=== PATIENT | male | born 1990 ===

== ENCOUNTER 2018-06-11 17:13 | Emergency (ER) | payer OTHER ==
[2018-06-11 17:24] VITALS: BP 125/79; PULSE 73; RESP 18; TEMP 98.9; O2SAT 97
[2018-06-11] MEDS ORDERED: Lidocaine 5% Patch TD STA (17:25)
[2018-06-11] MEDS ORDERED: Lidocaine 5% Patch TD ONE (17:35)
--- NOTE | 2018-06-11 18:15 | C.PDOC ---
History Of Present Illness 27 y/o male presents to the ER complaining of left sided lower back pain which began [employer]. Patient states that he was shoveling meat into a convex grinder when he strained his back. Patient reports that the pain is sharp and constant and rates the pain 10/10. Denies having fever, chills, dysuria, and hematuria. Time Seen by Provider: 06/11/18 17:15 Chief Complaint (Nursing): Back Pain History Per: Patient History/Exam Limitations: no limitations Onset/Duration Of Symptoms: Hrs Current Symptoms Are (Timing): Still Present Severity: Moderate Past Medical History Reviewed: Historical Data, Nursing Documentation, Vital Signs Vital Signs: Last Vital Signs Temp 98.9 F 06/11/18 17:22 Pulse 73 06/11/18 17:22 Resp 18 06/11/18 17:22 BP 125/79 06/11/18 17:22 Pulse Ox 97 06/11/18 18:43 - Medical History PMH: No Chronic Diseases Surgical History: No Surg Hx Family History: States: No Known Family Hx - Social History Hx Alcohol Use: Yes Hx Substance Use: No Review Of Systems Except As Marked, All Systems Reviewed And Found Negative. Constitutional: Negative for: Fever, Chills Genitourinary: Negative for: Dysuria, Hematuria Musculoskeletal: Positive for: Back Pain Physical Exam - Physical Exam Appears: Non-toxic, No Acute Distress Skin: Normal Color, Warm, Dry Head: Atraumatic, Normacephalic Eye(s): bilateral: Normal Inspection Nose: Normal Oral Mucosa: Moist Neck: Supple Chest: Symmetrical Back: Paraspinal Tenderness (left paraspinal lumbar region wuth palpable muscle spasm) Extremity: Normal ROM Neurological/Psych: Oriented x3, Normal Speech ED Course And Treatment O2 Sat by Pulse Oximetry: 97 (RA) Pulse Ox Interpretation: Normal Medical Decision Making Medical Decision Making: Plan: --Tramadol PO --Motrin PO --Valium PO --Lidoderm Patch Updates: On re-evaluation, patient feels better. Patient has been discharged and instructed to follow up in medical clinic. Disposition Counseled Patient/Family Regarding: Diagnosis, Need For Followup, Rx Given - Disposition Referrals: [facility] at [facility] [Outside] Disposition: HOME/ ROUTINE Disposition Time: 18:13 Condition: STABLE Prescriptions: diaZEpam [Valium] 5 mg PO TID #12 tab Ibuprofen [Motrin] 600 mg PO TID #15 tab Lidocaine 5% [Lidoderm] 1 ea TD DAILY #3 patch Instructions: Low Back Pain (DC) Forms: Gen Discharge Inst Turkish, [facility] (Turkish), Work Excuse - POA Present On Arrival: None - Clinical Impression Clinical Impression: Low back strain - Scribe Statement The provider has reviewed the documentation as recorded by the Yari Akins Provider Attestation: All medical record entries made by the Erickaibchuy were at my direction and personally dictated by me. I have reviewed the chart and agree that the record accurately reflects my personal performance of the history, physical exam, medical decision making, and the department course for this patient. I have also personally directed, reviewed, and agree with the discharge instructions and disposition.
== END 2018-06-11 18:21 | disposition home or self-care (01) ==
LOC: C.ER 17:13
DX: S39.012A Strain of muscle, fascia and tendon of lower back, initial encounter (principal); X58.XXXA Exposure to other specified factors, initial encounter

== ENCOUNTER 2018-06-19 08:32 | Emergency (ER) | payer SELFPAY | END 2018-06-19 08:55 | disposition left against medical advice (07) | LOC: C.ER 08:32 | DX: Z02.89 Encounter for other administrative examinations (principal); M54.9 Dorsalgia, unspecified ==

== ENCOUNTER 2018-07-24 18:06 | Emergency (ER) | payer OTHER ==
[2018-07-24] MEDS ORDERED: Sodium Chloride 0.9% 1,000 ML IV ONE (18:53)
[2018-07-24] MEDS ORDERED: Sodium Chloride 0.9% 1,000 ML ONE (19:00)
[2018-07-24 19:10] LABS: BASO % 0.5 % (0.0-2.0); EOS # 0.4 K/uL (0.0-0.7); EOS % 8.5 % (0.0-4.0); HEMOGLOBIN 15.8 g/dL (12.0-18.0); LYMPH # 1.7 K/uL (1.0-4.3); LYMPH % 33.7 % (20.0-40.0); MEAN CELL VOLUME 81.5 fL (80.0-94.0); MEAN CORPUSCULAR HEMOGLOBIN 27.2 pg (27.0-31.0); MEAN CORPUSCULAR HGB CONC 33.4 g/dL (33.0-37.0); MEAN PLATELET VOLUME 9.2 fL (7.2-11.7); MONO # 0.6 K/uL (0.0-0.8); MONO % 12.2 % (0.0-10.0); NEUT # 2.3 K/uL (1.8-7.0); NEUT % 45.1 % (50.0-75.0); NRBC % 0.2 % (0.0-2.0); RBC 5.81 Mil/uL (4.40-5.90); RED CELL DISTRIBUTION WIDTH 13.4 % (11.5-14.5); WHITE BLOOD COUNT 5.1 K/uL (4.8-10.8)
[2018-07-24 19:24] LABS: ALB/GLOB RATIO 1.5 (1.0-2.1); ALBUMIN 4.6 g/dL (3.5-5.0); ALT/SGPT 28 U/L (21-72); AST/SGOT 24 U/L (17-59); BLOOD UREA NITROGEN 12 mg/dL (9-20); GFR NON-AFRICAN AMERICAN > 60; LIPASE 95 U/L (23-300)
--- NOTE | 2018-07-24 19:29 | C.PDOC ---
History Of Present Illness 28 year old male presents to the ED for evaluation of worsening epigastric abdominal pain associated with severe nausea for 2 weeks. Patient reports sustaining an injury at work, he was prescribed unknown medications, and has since started experiencing abdominal pain. Denies vomiting, fever, diarrhea, dark stool, and any other associated symptoms. Time Seen by Provider: 07/24/18 18:35 Chief Complaint (Nursing): Abdominal Pain History Per: Patient History/Exam Limitations: no limitations Onset/Duration Of Symptoms: Days Current Symptoms Are (Timing): Still Present Past Medical History Reviewed: Historical Data, Nursing Documentation, Vital Signs Vital Signs: Last Vital Signs Temp 98.4 F 07/24/18 18:27 Pulse 68 07/24/18 18:27 Resp 20 07/24/18 18:27 BP 126/74 07/24/18 18:27 Pulse Ox 99 07/24/18 18:27 Family History: States: Unknown Family Hx - Social History Hx Alcohol Use: Yes Hx Substance Use: No Review Of Systems Constitutional: Negative for: Fever, Chills Gastrointestinal: Positive for: Nausea, Abdominal Pain (epigastric.). Negative for: Vomiting, Diarrhea Physical Exam - Physical Exam Appears: Non-toxic Skin: Normal Color, Warm, Dry Head: Atraumatic, Normacephalic Eye(s): bilateral: Normal Inspection Oral Mucosa: Moist Neck: Normal ROM, Supple Cardiovascular: Rhythm Regular, No Murmur Respiratory: Normal Breath Sounds, No Rales, No Rhonchi, No Wheezing Gastrointestinal/Abdominal: Normal Exam, Soft, Tenderness (to the epigastric region. ), No Distention, Guarding, No Rebound Extremity: Bilateral: Atraumatic, Normal Color And Temperature, Normal ROM Neurological/Psych: Oriented x3, Normal Speech, Normal Motor Gait: Steady ED Course And Treatment - Laboratory Results Result Diagrams: 07/24/18 19:03 07/24/18 19:03 Lab Interpretation: Normal O2 Sat by Pulse Oximetry: 99 (RA) Pulse Ox Interpretation: Normal - CT Scan/US US ABD Complete Other Rad Studies (CT/US): Read By Radiologist CT/US Interpretation: CLINICAL HISTORY: Abdominal pain. TECHNIQUE: Realtime sonographic images were obtained in multiple projections. COMMENTS: The liver is of uniform echo texture without evidence of mass or defect measuring 16.66 cm. There is no intra or extrahepatic biliary ductal dilatation. The common bile duct measures 3.3 mm. The gallbladder shows gallbladder polyps measuring 0.48 x 0.29 x 0.36 cm and 0.53 x 0.31 x 0.61 cm. There are additional echogenic foci in the dependent portion compatible with small stones. The gallbladder wall is not thickened measuring 0.14 cm and there is no pericholecystic fluid. There is no abdominal ascites. The visualized portions of abdominal aorta present no abnormalities. There is limited visualization of the pancreas. The spleen is of uniform echo texture and does not appear enlarged measuring 7.97 cm. The right kidney measures 10.99 x 5.3 x 5.78 cm and the left kidney measures 11.85 x 6.03 x 5.58 cm. Both kidneys are free of hydronephrosis. IMPRESSION: 1. Gallbladder polyps. 2. Gallstones. Reevaluation Time: 21:52 Reassessment Condition: Improved Medical Decision Making Medical Decision Making: Plan: --Urinalysis --Blood sent. --Pepcid --Zofran --US Abdomen Complete. Disposition Counseled Patient/Family Regarding: Studies Performed, Diagnosis, Need For Followup, Rx Given - Disposition Referrals: [facility] at [facility] [Outside] Disposition: HOME/ ROUTINE Disposition Time: 21:59 Condition: IMPROVED Prescriptions: Famotidine [Pepcid] 40 mg PO HS #30 tab Instructions: Gastritis, [place] Diet, Gallstones Forms: [employer] (Frisian) Print Language: SINHALA - Clinical Impression Clinical Impression: Epigastric abdominal pain, Gallstone - Scribe Statement The provider has reviewed the documentation as recorded by the Erickaibe (Blanca Montgomery) Provider Attestation: All medical record entries made by the Yari were at my direction and personally dictated by me. I have reviewed the chart and agree that the record accurately reflects my personal performance of the history, physical exam, medical decision making, and the department course for this patient. I have also personally directed, reviewed, and agree with the discharge instructions and disposition.
[2018-07-24 20:55] VITALS: RESP 16
[2018-07-24 21:25] VITALS: O2SAT 99
[2018-07-24 22:11] VITALS: BP 118/72; PULSE 65; TEMP 98.5
--- NOTE | 2018-07-25 09:42 | US ---
Abdominal ultrasound HISTORY: Abdominal pain. COMPARISON: None available. TECHNIQUE: Real-time sonography was performed through the abdomen. FINDINGS: LIVER: 16.7 centimeters in length. Normal echogenicity. Gallbladder: Multiple nonmobile echogenic foci noted at the level of the gallbladder wall; for example, measuring up to 5 x 3 x 4 millimeters and 5 x 3 x 6 millimeters suggestive for polyps. In addition, there is some mild layering echogenic debris at the dependent portion of the gallbladder which may represent some mild sludge and or calculi. Normal gallbladder wall thickness of 1.4 millimeters. Negative sonographic Silverio's sign. Common bile duct measures 3.3 millimeters, within normal limits. Limited visualization of the pancreas. Spleen measures 8 centimeters in length, within normal limits. Visualized aorta and IVC are preserved. Right kidney: 11.0 x 5.5 x 5.8 centimeters. Mild fullness of the right renal collecting system without gross hydronephrosis. No gross calculi. Left Kidney: 11.9 x 6.0 x 5.6 centimeters. No calculi or hydronephrosis. Impression: 1. Multiple nonmobile echogenic foci noted at the level of the gallbladder wall; for example, measuring up to 5 x 3 x 4 millimeters and 5 x 3 x 6 millimeters suggestive for polyps. In addition, there is some mild layering echogenic debris at the dependent portion of the gallbladder which may represent some mild sludge and or calculi. Normal gallbladder wall thickness of 1.4 millimeters. Negative sonographic Silverio's sign. 2. Mild fullness of the right renal collecting system without gross hydronephrosis. No gross calculi. Clinical correlation. 3. Additional findings as above. A preliminary report was submitted at 9:19 p.m. on 07/24/[address] Antolin Mota from [employer].
== END 2018-07-24 22:10 | disposition home or self-care (01) ==
LOC: C.ER 18:06
DX: K80.20 Calculus of gallbladder without cholecystitis without obstruction (principal); R10.13 Epigastric pain
CPT/HCPCS: 76700; 80053; 83690; 85025; 96361; 96374; 96375; 99285; J2405; J7030

== ENCOUNTER 2018-10-25 10:53 | Emergency (ER) | payer OTHER ==
[2018-10-25 11:05] VITALS: BMI 24.7
[2018-10-25 11:07] VITALS: BP 127/78; PULSE 66; RESP 18; TEMP 98.2; O2SAT 98
--- NOTE | 2018-10-25 12:19 | C.PDOC ---
History Of Present Illness 28 y/o male, otherwise well, presents to the ED for exacerbation of low back pain for the past week. He denies any recent fall or blunt trauma. Reports he sustained an injury at work 2-3 months ago when shoveling something. He was treated through worker's comp and was cleared by a doctor to return to work full duty, however has been having difficulty with the lifting. He reports taking an unknown pain medication with minimal relief. Denies any extremity weakness, numbness, dysuria, or urinary or fecal incontinence. Time Seen by Provider: 10/25/18 11:56 Chief Complaint (Nursing): Back Pain History Per: Patient History/Exam Limitations: no limitations Onset/Duration Of Symptoms: Days Current Symptoms Are (Timing): Still Present Quality Of Discomfort: "Pain" Previous Symptoms: Back Pain, Prior Injury Past Medical History Reviewed: Historical Data, Nursing Documentation, Vital Signs Vital Signs: Last Vital Signs Temp 98.2 F 10/25/18 11:05 Pulse 66 10/25/18 11:05 Resp 18 10/25/18 11:05 BP 127/78 10/25/18 11:05 Pulse Ox 98 10/25/18 11:05 - Medical History PMH: No Chronic Diseases Surgical History: No Surg Hx Family History: States: Unknown Family Hx - Social History Hx Tobacco Use: No Hx Alcohol Use: Yes Hx Substance Use: No - Immunization History Hx Tetanus Toxoid Vaccination: No Hx Influenza Vaccination: No Hx Pneumococcal Vaccination: No Review Of Systems Except As Marked, All Systems Reviewed And Found Negative. Constitutional: Negative for: Fever, Chills Gastrointestinal: Negative for: Abdominal Pain Genitourinary: Negative for: Dysuria, Frequency, Incontinence, Hematuria Musculoskeletal: Positive for: Back Pain Skin: Negative for: Rash, Lesions Neurological: Negative for: Weakness, Numbness, Incoordination Physical Exam - Physical Exam Appears: Non-toxic, No Acute Distress Skin: Warm, Dry, No Rash Head: Atraumatic, Normacephalic Eye(s): bilateral: Normal Inspection, PERRL, EOMI Neck: Normal ROM Chest: Symmetrical Respiratory: No Accessory Muscle Use, Other (No respiratory distress, speaking in full sentences) Back: No Vertebral Tenderness, Muscle Spasm (Left paralumbar), Paraspinal Tende rness (Left paralumbar) Extremity: Bilateral: Atraumatic, Normal Color And Temperature Neurological/Psych: Oriented x3 Gait: Steady (but appears to be favoring the left side) ED Course And Treatment O2 Sat by Pulse Oximetry: 98 (RA) Pulse Ox Interpretation: Normal Medical Decision Making Medical Decision Making: Initial Plan was to treat patient with pain medication and muscle relaxant. Orders delayed due to high volume of patients seen simultaneously. 12:30 Patient came to the assistant front desk manager and advised he was leaving because he has contacted him MD and they would see him today. He left prior to receiving treat ment Disposition - Disposition Disposition: HOME/ ROUTINE Disposition Time: 12:30 Condition: STABLE Forms: [employer] (Ethiopian) - POA Present On Arrival: None - Clinical Impression Clinical Impression: Lumbar sprain - Scribe Statement The provider has reviewed the documentation as recorded by the Yari Quinones Provider Attestation: All medical record entries made by the Yari were at my direction and personally dictated by me. I have reviewed the chart and agree that the record accurately reflects my personal performance of the history, physical exam, medical decision making, and the department course for this patient. I have also personally directed, reviewed, and agree with the discharge instructions and disposition.
== END 2018-10-25 12:50 | disposition home or self-care (01) ==
LOC: C.ER 10:53
DX: S33.5XXA Sprain of ligaments of lumbar spine, initial encounter (principal); X58.XXXA Exposure to other specified factors, initial encounter

== ENCOUNTER 2019-02-12 07:20 | Emergency (ER) | payer OTHER ==
[2019-02-12 07:25] VITALS: BMI 25.2
[2019-02-12] MEDS ORDERED: Sodium Chloride 0.9% 1,000 ML IV ONE (07:44)
[2019-02-12] MEDS ORDERED: Sodium Chloride 0.9% 1,000 ML ONE (08:03)
[2019-02-12 08:21] LABS: BASO % 0.3 % (0.0-2.0); EOS # 0.1 K/uL (0.0-0.7); EOS % 2.3 % (0.0-4.0); HEMOGLOBIN 15.6 g/dL (12.0-18.0); LYMPH # 1.4 K/uL (1.0-4.3); LYMPH % 25.3 % (20.0-40.0); MEAN CELL VOLUME 81.1 fL (80.0-94.0); MEAN CORPUSCULAR HEMOGLOBIN 26.6 pg (27.0-31.0); MEAN CORPUSCULAR HGB CONC 32.8 g/dL (33.0-37.0); MEAN PLATELET VOLUME 9.9 fL (7.2-11.7); MONO # 0.5 K/uL (0.0-0.8); MONO % 8.2 % (0.0-10.0); NEUT # 3.6 K/uL (1.8-7.0); NEUT % 63.9 % (50.0-75.0); RBC 5.85 Mil/uL (4.40-5.90); RED CELL DISTRIBUTION WIDTH 14.4 % (11.5-14.5); WHITE BLOOD COUNT 5.6 K/uL (4.8-10.8)
[2019-02-12 08:24] LABS: URINE BILIRUBIN NEGATIVE (NEGATIVE); URINE BLOOD NEGATIVE (NEGATIVE); URINE CLARITY Clear (Clear); URINE COLOR Yellow (YELLOW); URINE GLUCOSE (UA) NORMAL (Normal); URINE LEUKOCYTE ESTERASE NEG Leu/uL (Negative); URINE PROTEIN NEGATIVE (NEGATIVE); URINE UROBILINOGEN NORMAL mg/dL (0.2-1.0)
[2019-02-12 08:38] VITALS: PULSE 59; RESP 18; O2SAT 98
[2019-02-12 08:38] LABS: ALB/GLOB RATIO 1.4 (1.0-2.1); ALBUMIN 4.4 g/dL (3.5-5.0); ALT/SGPT 23 U/L (21-72); AST/SGOT 30 U/L (17-59); BLOOD UREA NITROGEN 14 mg/dL (9-20); CALCIUM 9.8 mg/dl (8.6-10.4); GFR NON-AFRICAN AMERICAN > 60; LIPASE 44 U/L (23-300)
--- NOTE | 2019-02-12 09:10 | C.PDOC ---
History Of Present Illness 28 y/o male presents to the ER complaining of upper abdominal pain which has been present for the past 3-4 days.Patient states that he has associated nausea. Patient denies having fever,chills, vomiting,diarrhea,dysuria, and hematuria. Time Seen by Provider: 02/12/19 07:36 Chief Complaint (Nursing): Abdominal Pain History Per: Patient History/Exam Limitations: no limitations Onset/Duration Of Symptoms: Days Current Symptoms Are (Timing): Still Present Severity: Moderate Associated Symptoms: Nausea. denies: Fever, Chills, Vomiting, Diarrhea, Urinary Symptoms Recent travel outside of the [place]: No Past Medical History Reviewed: Historical Data, Nursing Documentation, Vital Signs Vital Signs: Last Vital Signs Temp 98.9 F 02/12/19 07:25 Pulse 59 L 02/12/19 08:38 Resp 18 02/12/19 08:38 BP 121/48 L 02/12/19 08:38 Pulse Ox 98 02/12/19 08:38 Primary Care Provider: FAMILY PROVIDER,NO - Medical History PMH: No Chronic Diseases Surgical History: No Surg Hx Family History: States: No Known Family Hx - Social History Hx Tobacco Use: No Hx Alcohol Use: Yes Hx Substance Use: No - Immunization History Hx Tetanus Toxoid Vaccination: No Hx Influenza Vaccination: No Hx Pneumococcal Vaccination: No Review Of Systems Except As Marked, All Systems Reviewed And Found Negative. Constitutional: Negative for: Fever, Chills Gastrointestinal: Positive for: Nausea, Abdominal Pain. Negative for: Vomiting, Diarrhea Genitourinary: Negative for: Dysuria, Hematuria Physical Exam - Physical Exam Appears: Non-toxic, No Acute Distress Skin: Normal Color, Warm, Dry Head: Atraumatic, Normacephalic Eye(s): bilateral: Normal Inspection Nose: Normal Oral Mucosa: Moist Neck: Normal, Supple Chest: Symmetrical Cardiovascular: Rhythm Regular Respiratory: Normal Breath Sounds, No Rales, No Rhonchi, No Wheezing Gastrointestinal/Abdominal: Soft, Tenderness (epigastric tenderness), No Guarding, No Rebound Extremity: Normal ROM Neurological/Psych: Oriented x3, Normal Speech ED Course And Treatment - Laboratory Results Result Diagrams: 02/12/19 07:56 02/12/19 07:56 Lab Results: Total Bilirubin 0.9 mg/dL (0.2-1.3) 02/12/19 07:56 AST 30 U/L (17-59) 02/12/19 07:56 ALT 23 U/L (21-72) 02/12/19 07:56 Alkaline Phosphatase 61 U/L (38-126) 02/12/19 07:56 Total Protein 7.6 g/dL (6.3-8.3) 02/12/19 07:56 Albumin 4.4 g/dL (3.5-5.0) 02/12/19 07:56 Globulin 3.2 gm/dL (2.2-3.9) 02/12/19 07:56 Albumin/Globulin Ratio 1.4 (1.0-2.1) 02/12/19 07:56 Lipase 44 U/L (23-300) 02/12/19 07:56 Urine Color Yellow (YELLOW) 02/12/19 07:45 Urine Clarity Clear (Clear) 02/12/19 07:45 Urine pH 6.0 (5.0-8.0) 02/12/19 07:45 Ur Specific Verner 1.017 (1.003-1.030) 02/12/19 07:45 Urine Protein Negative mg/dL (NEGATIVE) 02/12/19 07:45 Urine Glucose (UA) Normal mg/dL (Normal) 02/12/19 07:45 Urine Ketones Negative mg/dL (NEGATIVE) 02/12/19 07:45 Urine Blood Negative (NEGATIVE) 02/12/19 07:45 Urine Nitrate Negative (NEGATIVE) 02/12/19 07:45 Urine Bilirubin Negative (NEGATIVE) 02/12/19 07:45 Urine Urobilinogen Normal mg/dL (0.2-1.0) 02/12/19 07:45 Ur Leukocyte Esterase Neg Lauren/uL (Negative) 02/12/19 07:45 Urine WBC (Auto) < 1 /hpf (0-5) 02/12/19 07:45 Urine RBC (Auto) 2 /hpf (0-3) 02/12/19 07:45 Lab Interpretation: Normal O2 Sat by Pulse Oximetry: 98 (RA) Pulse Ox Interpretation: Normal - CT Scan/US No standard instances Other Rad Studies (CT/US): Read By Radiologist, Radiology Report Reviewed CT/US Interpretation: FINDINGS: Liver: 15.6 centimeters in length. Normal echogenicity. Gallbladder: No calculi or sludge. Again identified are 2 n onmobile echogenic foci at the level of the gallbladder wall measuring 5 x 4 x 5 millimeters and 6 x 4 x 5 millimeters. Normal wall thickness of 1.4 millimeters. No gross wall edema. Negative sonographic Silverio's sign. Common bile duct measures 3.2 millimeters, within normal limits. Limited visualization of the pancreas. Spleen measures 8.8 centimeters in length, within normal limits. Visualized aorta and IVC are preserved. Right kidney: 11.1 x 4.6 x 5.5 centimeters. No calculi or hydronephrosis. Left Kidney: 11.4 x 6.5 x 6.4 centimeters. No calculi or hydronephrosis. Impression: 1. Two nonmobile echogenic foci at the level of the gallbladder wall measuring 5 x 4 x 5 and 6 x 4 x 5 millimeter suggestive for polyps. 2. Limited visualization of the pancreas. Progress Note: Labs,UA, and US-Abd ordered.Patient treated with IV Fluids,Zofran IV, and Toradol IV. On re-evaluation abdomen soft non-tender Reassessment Condition: Improved Disposition Counseled Patient/Family Regarding: Studies Performed, Diagnosis, Need For Followup, Rx Given - Disposition Referrals: [facility] [Outside] [facility] [Outside] Disposition: HOME/ ROUTINE Disposition Time: 11:00 Condition: IMPROVED Prescriptions: Ondansetron ODT [Zofran ODT] 1 odt PO BID PRN #6 odt PRN Reason: Nausea/Vomiting Instructions: Acute Abdomen (Belly Pain), Nausea and Vomiting, Adult Forms: [employer] (Equatorial Guinean) Print Language: ESTONIAN - POA Present On Arrival: None - Clinical Impression Clinical Impression: Abdominal pain, Nausea, Vomiting - PA / WELDING EQUIPMENT REPAIRER / Resident Statement MD/DO has reviewed & agrees with the documentation as recorded. - Scribe Statement The provider has reviewed the documentation as recorded by the Yari Akins Provider Attestation All medical record entries made by the Yari were at my direction and personally dictated by me. I have reviewed the chart and agree that the record accurately reflects my personal performance of the history, physical exam, medical decision making, and the department course for this patient. I have also personally directed, reviewed, and agree with the discharge instructions and disposition.
--- NOTE | 2019-02-12 09:44 | US ---
Abdominal ultrasound HISTORY: Abdominal pain. COMPARISON: Ultrasound dated 04/08/2018 TECHNIQUE: Real-time sonography was performed through the abdomen. FINDINGS: Liver: 15.6 centimeters in length. Normal echogenicity. Gallbladder: No calculi or sludge. Again identified are 2 nonmobile echogenic foci at the level of the gallbladder wall measuring 5 x 4 x 5 millimeters and 6 x 4 x 5 millimeters. Normal wall thickness of 1.4 millimeters. No gross wall edema. Negative sonographic Silverio's sign. Common bile duct measures 3.2 millimeters, within normal limits. Limited visualization of the pancreas. Spleen measures 8.8 centimeters in length, within normal limits. Visualized aorta and IVC are preserved. Right kidney: 11.1 x 4.6 x 5.5 centimeters. No calculi or hydronephrosis. Left Kidney: 11.4 x 6.5 x 6.4 centimeters. No calculi or hydronephrosis. Impression: 1. Two nonmobile echogenic foci at the level of the gallbladder wall measuring 5 x 4 x 5 and 6 x 4 x 5 millimeter suggestive for polyps. 2. Limited visualization of the pancreas.
[2019-02-12 11:21] VITALS: BP 110/71; TEMP 98.2
== END 2019-02-12 11:21 | disposition home or self-care (01) ==
LOC: C.ER 07:20
DX: R10.13 Epigastric pain (principal); R11.2 Nausea with vomiting, unspecified
CPT/HCPCS: 76700; 80053; 81001; 83690; 85025; 96361; 96374; 96375; 99285; J1885; J2405; J7030